=== PATIENT | female | born 1945 | race Caucasian/White ===

== ENCOUNTER 2019-10-08 13:31 | Outpatient (CLI) | payer MEDICARE, SELFPAY ==
--- NOTE | ~2019-10-08 | CT_ITS ---
EXAMINATION: CT chest wo con DATE: 10/08/2019 15:10 INDICATION: Pulmonary nodule TECHNIQUE: Computed tomography (CT) of the chest was performed without intravenous contrast. Automate d exposure control and iterative reconstruction technique were employed. Exam dose: 128.65 mGy-cm to tiffany exam DLP. COMPARISON: None FINDINGS: Up to 2 cm mass or contiguous masses are noted in the right lobe of the thyroid gland. Cons ider further evaluation with thyroid ultrasound examination. The left thyroid lobe enhances homogeneo usly. 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 There is a calcified splenic granuloma as well. No hilar or mediastinal mass lesion or lymphadenopathy. No thoracic aortic aneurysm. Normal heart siz e. No pericardial or pleural effusion. 7 mm calcified pulmonary granuloma in the anterior left perihilar area, left upper lobe (series 4 [id number]). 5 mm calcified pulmonary granuloma in the anterior basilar segment left lower lobe adjacent to the gr eater fissure. Several small calcified granulomas are noted in the right upper lobe. An approximately 6 non or pleural-based opacity is noted in the right lower lobe (image 75, series 4) . At least several approximately 4 mm additional nodules are noted in the right lower lobe, one of whic h is calcified, consistent with at least one calcified pulmonary granuloma. The others are likely non calcified pulmonary granulomas. [address] examination is recommended.. Approximately 3.5 cm hepatic dome cyst. Much smaller hepatic dome cyst is suggested as well. No adrenal mass lesion is detected. Approximately 8 cm left renal cyst. Other than some degenerative spurring of the thoracic spine the included skeletal structures are unre markable. IMPRESSION: Multiple bilateral pulmonary nodules, largest of which are calcified, in addition a righ t calcified hilar nodes, consistent with old pulmonary granulomatous disease Occasional noncalcified small pulmonary nodules; consider 6 month follow-up CT imaging Up to 2 cm mass or contiguous masses in the lower right thyroid lobe; consider thyroid ultrasound for further evaluation Hepatic cysts 8 cm left renal cyst Reviewed, dictated and finalized at [facility]. Reviewed, dictated and finalized at [facility]. IMPRESSION: Multiple bilateral pulmonary nodules, largest of which are calcifi ed, in addition a right calcified hilar nodes, consistent with old pulmonary gr anulomatous disease Occasional noncalcified small pulmonary nodules; consider 6 month follow-up CT imaging Up to 2 cm mass or contiguous masses in the lower right thyroid lobe; consider thyroid ultrasound for further evaluation Hepatic cysts 8 cm left renal cyst
--- NOTE | ~2019-10-08 | MR_ITS ---
EXAMINATION: MR brain/brain stem wo/w con DATE: 10/08/2019 15:01 INDICATION: Melanoma of left eye. Headache. TECHNIQUE: Magnetic resonance imaging (MRI) of the brain and brainstem was performed without and with 10 mL MultiHance intravenous contrast. Sequences included sagittal and axial T1-weighted FSE, axial diffusion-weighted FS EPI, axial T2*-weighted GRE, axial T2-weighted FLAIR Propeller, and axial T2-we ighted Propeller. Postcontrast sequences included axial, sagittal, and coronal T1-weighted FSE. Appar ent diffusion coefficient (ADC) maps were created. COMPARISON: None. FINDINGS: There are scattered areas of nonspecific increased T2-weighted signal intensity in the cere bral white matter, which is within normal limits for the patient's age. There is no intracranial hemo rrhage, acute infarction, or abnormal intracranial mass lesion. The ventricles are normal in size. Ca vum septum pellucidum and vergae are noted. 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 There are likely cathy nges of right ocular lens replacement surgery. The mastoid air cells are normal. IMPRESSION: 1. Normal aging brain. Reviewed, dictated and finalized at [facility]. IMPRESSION: 1. Normal aging brain.
[2019-10-08 14:30] LABS: Estimated Glomerular Filt Rate > 60
[2019-10-08 17:12] LABS: Hematocrit 38.1 % (37.0-47.0); Hemoglobin 12.2 g/dL (12.0-15.0); Mean Corpuscular Volume 84.3 fl (80-100); Mean Platelet Volume 9.2 fl (7.4-10.4); Platelet Count Result 331 k/mm3 (150-375); Red Blood Count 4.52 M/mm3 (4.2-5.4); Red Cell Distribution Width 14.4 % (11.5-14.5); White Blood Count 5.8 K/mm3 (4.5-10.0)
[2019-10-08 17:37] LABS: Alanine Aminotransferase 16 U/L (4-35); Alkaline Phosphatase 111 U/L (38-126); Aspartate Amino Transferase 33 U/L (14-36); Bilirubin,Total 0.3 mg/dL (0.2-1.3); Blood Urea Nitrogen 10 mg/dL (7-17); Calcium 9.1 mg/dL (8.4-10.2); Carbon Dioxide 27 mmol/L (22-30); Chloride 104 mmol/L (98-107); Estimated Glomerular Filt Rate > 60; Glucose 95 mg/dL (65-105); Sodium 138 mmol/L (137-145)
[2019-10-08 17:52] LABS: Erythrocyte Sedimentation Rate 25 mm/hr (0-20)
== END 2019-10-08 13:32 | disposition home or self-care (01) ==
DX: Z86.006 Personal history of melanoma in-situ (principal); R91.8 Other nonspecific abnormal finding of lung field; R51 Headache; N28.1 Cyst of kidney, acquired; K76.89 Other specified diseases of liver; C43.9 Malignant melanoma of skin, unspecified
CPT/HCPCS: 36415; 70553; 71250; 80053; 84443; 85027; 85652; A9577

== ENCOUNTER 2019-10-28 11:02 | Outpatient (CLI) | payer MEDICARE, SELFPAY ==
--- NOTE | ~2019-10-28 | US_ITS ---
EXAMINATION: US thyroid EXAM DATE: 10/28/2019 12:06 INDICATION: Thyroid nodule, abnormal CT. TECHNIQUE: Multiple grayscale and Doppler images of the thyroid were obtained (by a technologist who performed the scan) and subsequently reviewed. Individual nodules and recommendations may be reporte d in accordance with TI-RADS system as designated by the 2017 ACR White Paper TI-RADS committee. Dawit elation is made to CT chest 10/08/2019. FINDINGS: The right thyroid lobe measures 5.3 x 1.7 x 1.6 cm, the left thyroid lobe measures 4.5 x 1.1 x 1.3 cm . There is homogeneous thyroid echogenicity. There is a focal nodule in the left thyroid lobe measuring 2.2 x 2.3 x 1.8 centimeters, mixed cystic and solid (1 point), isoechoic (1 point), wider than tall, smooth margin, containing punctate echogen ic foci (3 points), category TR4 for this nodule. Comment tail artifacts seen at several of the echo genic foci, indicating that this could be a colloid cyst. There is a 6 mm left thyroid lobe nodule. 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 Consider one-year follow-up thyroi d ultrasound. Reviewed, dictated and finalized at [facility]. 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 Consider one -year follow-up thyroid ultrasound.
== END 2019-10-28 11:03 | disposition home or self-care (01) ==
DX: E04.1 Nontoxic single thyroid nodule (principal)
CPT/HCPCS: 76536

== ENCOUNTER 2020-10-16 12:13 | Outpatient (CLI) | payer MEDICARE, SELFPAY ==
--- NOTE | ~2020-10-16 | XR_ITS ---
XR chest 2V 10/16/2020 12:37 Indication: Cough and exhaustion. Shortness of breath. History of melanoma. Procedure: PA and lateral views of the chest Comparison: CT dated 10/08/2019 Findings: Multiple pulmonary nodules of the right mid and lower lung zone, most likely metastatic dis ease. Elevated right diaphragm. Heart size normal. No significant pleural effusion. No pneumothorax. No acute osseous abnormality. The lungs are hyperinflated which is consistent with, but not diagnosti c of chronic obstructive pulmonary disease. Impression: 1: Multiple pulmonary nodules of the right mid and lower lung, suspicious for metastatic disease. Reviewed, dictated and finalized at [facility]. Impression: 1: Multiple pulmonary nodules of the right mid and lower lung, suspicious for m etastatic disease.
== END 2020-10-16 12:14 | disposition home or self-care (01) ==
LOC: ANHIMG 12:21
PROVIDERS: PCP Family Medicine; Visit Provider Family Medicine
DX: R05 Cough (principal); R91.8 Other nonspecific abnormal finding of lung field
CPT/HCPCS: 71046

== ENCOUNTER 2020-10-31 07:48 | Outpatient (CLI) | payer MEDICARE, SELFPAY ==
--- NOTE | ~2020-10-31 | PE_ITS ---
EXAMINATION: PET skull to mid thigh DATE: 10/31/2020 10:40 INDICATION: Nonspecific finding of the lung field, lung nodules on recent chest radiograph, history o f melanoma TECHNIQUE: Blood glucose level was 92 mg/dL. 9.513 mCi of 18-fluorodeoxyglucose (18-FDG) was administ ered i.v. Low dose computed tomography (CT) images were acquired from the base of the brain to the pr oximal thighs for attenuation correction and anatomic localization. Positron emission tomography (PET ) images were acquired in the same distribution beginning 53 minutes after injection. The dose-length product (DLP) was 322.80 mGy-cm. COMPARISON: CT, 10/08/2019 FINDINGS: Head/neck: There is mild FDG uptake in the right thyroid lobe which is nonspecific. FDG uptake in the oral cavity without suspicious CT correlate is likely physiologic. Chest: There are at least 15 pulmonary nodules seen in all lobes of the lungs the largest measures 12 mm in the left lower lobe. Many of the larger nodules demonstrate abnormal FDG uptake while some of the smaller ones do not, likely related to their size. There is a left perihilar lymph node versus no dule with abnormal FDG uptake and SUV max of 7.5. There is mild atelectasis. The heart size is normal . There is no pleural effusion or pneumothorax. Abdomen/pelvis/proximal thighs: There is an approximately 6.1 x 5.9 cm mass of the right hepatic lobe which demonstrates abnormal FDG uptake and SUV max of 14.5. There is a cyst in the left hepatic lobe . There is a 2.6 x 1.4 cm soft tissue mass in the pelvis on image 513 with abnormal FDG uptake and ZAPATA V max of 6.1. Physiologic FDG activity is present in the bowel and urinary tract. The spleen, pancrea s, gallbladder, and adrenal glands are normal. There is an 11 cm cyst of the left kidney lower pole. There are no dilated loops of bowel. Calcified atherosclerosis is noted. Musculoskeletal: No abnormal FDG uptake is identified. IMPRESSION: 1. Multiple pulmonary nodules, left perihilar nodule versus lymph node, liver mass, and soft tissue m ass of the pelvis with abnormal FDG uptake. Given the clinical history, findings most likely reflect metastatic melanoma. Reviewed, dictated and finalized at [facility]. IMPRESSION: 1. Multiple pulmonary nodules, left perihilar nodule versus lymph node, liver m ass, and soft tissue mass of the pelvis with abnormal FDG uptake. Given the cli nical history, findings most likely reflect metastatic melanoma.
[2020-10-31 08:16] LABS: Glucose Point of Care 92 mg/dl (65-105)
== END 2020-10-31 07:49 | disposition home or self-care (01) ==
PROVIDERS: PCP Family Medicine; Visit Provider Family Medicine
DX: R91.8 Other nonspecific abnormal finding of lung field (principal); Z85.820 Personal history of malignant melanoma of skin
CPT/HCPCS: 78815; A9552